=== PATIENT | male | born 1990 | race Caucasian/White ===

== ENCOUNTER 2021-08-10 14:35 | Inpatient (IN) | payer MEDICAID ==
[~2021-08-10] VITALS: Ht 172.7 cm; Wt 60.0 kg
[2021-08-10] MEDS ORDERED: NS 1,000 ML IV ONE (14:45)
[2021-08-10] MEDS ORDERED: OLANZapine ORAL DISINTEGRATING TAB 5MG PO ONE (15:00)
[2021-08-10 15:31] LABS: HEMATOCRIT 38.8 % (42.0-52.0); HEMOGLOBIN 13.4 g/dl (13.5-17.5); MEAN CORPUSCULAR HGB CONC 34.5 g/dl (32.0-36.5); PLATELET COUNT, AUTOMATED 259 10^3/uL (150-450); RED BLOOD COUNT 4.46 10^6/uL (4.30-6.10); WHITE BLOOD COUNT 10.1 10^3/uL (4.0-10.0)
[2021-08-10] MEDS ORDERED: ISOVUE-370 76% 100ML VIAL As Ordered ONE (15:45)
[2021-08-10 16:13] LABS: ALT/SGPT 47 U/L (12-78); BILIRUBIN,DIRECT 0.1 MG/DL (0.0-0.2); BILIRUBIN,TOTAL 0.4 MG/DL (0.2-1.0); BLOOD UREA NITROGEN 10 MG/DL (7-18); CALCIUM LEVEL 9.3 MG/DL (8.5-10.1); CARBON DIOXIDE LEVEL 28 MEQ/L (21-32); CHLORIDE LEVEL 103 MEQ/L (98-107); CREATININE FOR GFR 1.08 MG/DL (0.70-1.30); ETHYL ALCOHOL (ETHANOL) < 0.003 % (0.000-0.010); GLOMERULAR FILTRATION RATE > 60.0 (>60); GLUCOSE, FASTING 142 MG/DL (70-100); POTASSIUM SERUM 3.8 MEQ/L (3.5-5.1); SALICYLATE LEVEL 3.7 MG/DL (5.0-30.0); SODIUM LEVEL 138 MEQ/L (136-145); THYROID STIMULATING HORMONE 0.475 uIU/ML (0.358-3.740); TOTAL PROTEIN 7.4 GM/DL (6.4-8.2)
[2021-08-10 16:14] LABS: ACETAMINOPHEN LEVEL < 2.0 UG/ML (10.0-30.0)
[2021-08-10 17:20] LABS: AMPHETAMINES LEVEL URINE NEGATIVE (NEGATIVE); BARBITURATES URINE NEGATIVE (NEGATIVE); BENZODIAZEPINES URINE NEGATIVE (NEGATIVE); CANNABINOIDS URINE NEGATIVE (NEGATIVE); COCAINE METABOLITE URINE NEGATIVE (NEGATIVE); METHADONE URINE NEGATIVE (NEGATIVE); OPIATES URINE NEGATIVE (NEGATIVE); PHENCYCLIDINE URINE NEGATIVE (NEGATIVE)
[2021-08-11] MEDS ORDERED: HOME MED LIST COMPLETE! XX SCH (09:50)
[2021-08-12] MEDS: NICOTINE 21MG/24HR 1 EA TRANSDERMAL TD SCH (09:00)
[2021-08-12] MEDS ORDERED: OLANZapine ORAL DISINTEGRATING TAB 5MG PO ONE (09:55)
[2021-08-12] MEDS ORDERED: ACETAMINOPHEN TAB 650MG DOSE (2X325MG) PO PRN (13:25)
[2021-08-12] MEDS ORDERED: MAALOX 30 ML SUSP *UDC PO PRN (13:25)
[2021-08-12] MEDS ORDERED: OLANZapine ORAL DISINTEGRATING TAB 5MG PO PRN (13:25)
[2021-08-12] MEDS ORDERED: MOM 30ML SUSPENSION UDC PO PRN (13:25)
[2021-08-12 15:55] VITALS: BP 151/92
[2021-08-13] MEDS ORDERED: INFLUENZA QUADRIVALENT PF VACCINE 0.5ML SYRINGE IM PRN (07:55)
[2021-08-13] MEDS: NICOTINE 21MG/24HR 1 EA TRANSDERMAL TD SCH (09:00)
[2021-08-13] MEDS ORDERED: INFLUENZA QUADRIVALENT PF VACCINE 0.5ML SYRINGE IM ONE (09:00)
[2021-08-13 15:50] VITALS: BP 132/85
[2021-08-14] MEDS: NICOTINE 21MG/24HR 1 EA TRANSDERMAL TD SCH (09:00)
[2021-08-14 16:23] VITALS: BP 120/75
[2021-08-14] MEDS: traZODone 50 MG TAB PO PRN (21:19)
[2021-08-15] MEDS: NICOTINE 21MG/24HR 1 EA TRANSDERMAL TD SCH (08:05)
[2021-08-15] MEDS: PALIPERIDONE 3 MG ER TAB (INVEGA) PO SCH ×2 (14:14→21:08)
[2021-08-15 18:17] VITALS: BP 156/75
[2021-08-15] MEDS: traZODone 50 MG TAB PO PRN (21:06)
[2021-08-15] MEDS: DIVALPROEX 250MG *ER* TAB PO SCH (21:08)
[2021-08-16] MEDS: NICOTINE 21MG/24HR 1 EA TRANSDERMAL TD SCH (08:40)
[2021-08-16] MEDS: PALIPERIDONE 3 MG ER TAB (INVEGA) PO SCH ×2 (10:12→21:00)
[2021-08-16 14:43] LABS: CHOLESTEROL RISK RATIO 2.153 (<5)
[2021-08-16] MEDS: DIVALPROEX 250MG *ER* TAB PO SCH (21:00)
[2021-08-16] MEDS: traZODone 50 MG TAB PO PRN (21:00)
[2021-08-17 05:01] VITALS: BP 132/73
[2021-08-17] MEDS: NICOTINE 21MG/24HR 1 EA TRANSDERMAL TD SCH (09:00)
[2021-08-17] MEDS: PALIPERIDONE 3 MG ER TAB (INVEGA) PO SCH ×2 (09:49→20:52)
[2021-08-17] MEDS ORDERED: PALIPERIDONE PALMITATE 234MG/1.5ML INJ (INVEGA)(FREE PSY INPT ONLY) IM ONE (12:00)
[2021-08-17] MEDS ORDERED: BENZTROPINE 1 MG TAB PO PRN (12:10)
[2021-08-17 17:39] VITALS: BP 93/50
[2021-08-17] MEDS: DIVALPROEX 250MG *ER* TAB PO SCH (20:52)
[2021-08-17] MEDS: traZODone 50 MG TAB PO PRN (20:52)
[2021-08-18] MEDS: NICOTINE 21MG/24HR 1 EA TRANSDERMAL TD SCH (09:00)
[2021-08-18] MEDS: PALIPERIDONE 3 MG ER TAB (INVEGA) PO SCH ×2 (09:28→20:23)
[2021-08-18] MEDS: traZODone 50 MG TAB PO PRN (20:23)
[2021-08-18] MEDS: DIVALPROEX 250MG *ER* TAB PO SCH (20:23)
[2021-08-19] MEDS: NICOTINE 21MG/24HR 1 EA TRANSDERMAL TD SCH (08:03)
[2021-08-19] MEDS: PALIPERIDONE 3 MG ER TAB (INVEGA) PO SCH ×2 (08:06→20:59)
[2021-08-19 17:39] VITALS: BP 154/85
[2021-08-19] MEDS: DIVALPROEX 250MG *ER* TAB PO SCH (20:58)
[2021-08-19] MEDS: traZODone 50 MG TAB PO PRN (20:58)
[2021-08-20 06:20] VITALS: BP 125/67
[2021-08-20] MEDS: NICOTINE 21MG/24HR 1 EA TRANSDERMAL TD SCH (09:00)
[2021-08-20] MEDS: PALIPERIDONE 3 MG ER TAB (INVEGA) PO SCH ×2 (09:38→21:31)
[2021-08-20] MEDS: DIVALPROEX 250MG *ER* TAB PO SCH (21:30)
[2021-08-20] MEDS: traZODone 50 MG TAB PO PRN (21:30)
[2021-08-21] MEDS ORDERED: PALIPERIDONE PALMITATE 156MG/1ML INJ(INVEGA)(FREE PSY INPT ONLY) IM ONE (09:00)
[2021-08-21] MEDS: NICOTINE 21MG/24HR 1 EA TRANSDERMAL TD SCH (09:00)
[2021-08-21] MEDS: PALIPERIDONE 3 MG ER TAB (INVEGA) PO SCH ×2 (11:02→22:40)
[2021-08-21] MEDS: traZODone 50 MG TAB PO PRN (22:40)
[2021-08-21] MEDS: DIVALPROEX 250MG *ER* TAB PO SCH (22:41)
[2021-08-22] MEDS: NICOTINE 21MG/24HR 1 EA TRANSDERMAL TD SCH (09:00)
[2021-08-22] MEDS: PALIPERIDONE 3 MG ER TAB (INVEGA) PO SCH (09:34)
[2021-08-22] MEDS ORDERED: INVE234I IM (09:41)
[2021-08-22] MEDS ORDERED: DEPA250T2 PO (09:41)
[2021-08-22] MEDS ORDERED: TRAZ-252 PO (09:41)
[2021-08-22] MEDS ORDERED: PALI1TAB2 PO (09:41)
[2021-08-22] MEDS ORDERED: BENZ-52 PO (09:41)
[2021-08-22] MEDS ORDERED: NICO21PAT TD (09:41)
[2021-08-22] MEDS ORDERED: DEPA500T2 PO (09:45)
== END 2021-08-22 12:25 | DRG 750 ==
LOC: EDBD 14:35 → M ED 14:35 → M ED INP 08-12 13:25 → M PSY 08-12 14:53
PROVIDERS: ADMIT Student in an Organized Health Care Education/Training Program; ATTEND Student in an Organized Health Care Education/Training Program
DX: F25.0 Schizoaffective disorder, bipolar type (principal); U07.1 COVID-19; F17.210 Nicotine dependence, cigarettes, uncomplicated; F12.10 Cannabis abuse, uncomplicated; Z91.19 Patient's noncompliance with other medical treatment and regimen; Z59.02 Unsheltered homelessness; Z65.3 Problems related to other legal circumstances

== ENCOUNTER 2021-12-02 17:04 | Inpatient (IN) | payer MEDICAID ==
[~2021-12-02] VITALS: Ht 170.2 cm; Wt 60.4 kg
[~2021-12-02 17:04] MED LIST: BENZ-52 PO; DEPA250T2 PO; DEPA500T2 PO; INVE234I IM; NICO21PAT TD; PALI1TAB2 PO; TRAZ-252 PO
[2021-12-02 17:54] LABS: HEMATOCRIT 42.8 % (42.0-52.0); HEMOGLOBIN 14.7 g/dl (13.5-17.5); MEAN CORPUSCULAR HEMOGLOBIN 30.9 pg (27.0-33.0); MEAN CORPUSCULAR HGB CONC 34.3 g/dl (32.0-36.5); MEAN CORPUSCULAR VOLUME 90.1 fl (80.0-96.0); PLATELET COUNT, AUTOMATED 267 10^3/uL (150-450); RED BLOOD COUNT 4.75 10^6/uL (4.30-6.10); WHITE BLOOD COUNT 10.4 10^3/uL (4.0-10.0)
[2021-12-02 18:29] LABS: ACETAMINOPHEN LEVEL < 2.0 UG/ML (10.0-30.0); ALBUMIN 4.1 GM/DL (3.2-5.2); ALT/SGPT 30 U/L (12-78); BILIRUBIN,DIRECT < 0.1 MG/DL (0.0-0.2); BILIRUBIN,TOTAL 0.3 MG/DL (0.2-1.0); BLOOD UREA NITROGEN 8 MG/DL (7-18); CALCIUM LEVEL 9.6 MG/DL (8.5-10.1); CARBON DIOXIDE LEVEL 29 MEQ/L (21-32); CHLORIDE LEVEL 105 MEQ/L (98-107); CREATININE FOR GFR 1.05 MG/DL (0.70-1.30); ETHYL ALCOHOL (ETHANOL) < 0.003 % (0.000-0.010); GLOMERULAR FILTRATION RATE > 60.0 (>60); GLUCOSE, FASTING 140 MG/DL (70-100); POTASSIUM SERUM 4.1 MEQ/L (3.5-5.1); SODIUM LEVEL 139 MEQ/L (136-145); THYROID STIMULATING HORMONE 0.669 uIU/ML (0.358-3.740)
[2021-12-02 18:30] LABS: RSV AMPLIFICATION NEGATIVE (NEGATIVE)
[2021-12-02 18:31] LABS: AMPHETAMINES LEVEL URINE NEGATIVE (NEGATIVE); BARBITURATES URINE NEGATIVE (NEGATIVE); BENZODIAZEPINES URINE NEGATIVE (NEGATIVE); CANNABINOIDS URINE NEGATIVE (NEGATIVE); COCAINE METABOLITE URINE NEGATIVE (NEGATIVE); METHADONE URINE NEGATIVE (NEGATIVE); OPIATES URINE NEGATIVE (NEGATIVE); PHENCYCLIDINE URINE NEGATIVE (NEGATIVE)
[2021-12-03] MEDS ORDERED: MAALOX 30 ML SUSP *UDC PO PRN (00:15)
[2021-12-03] MEDS ORDERED: ACETAMINOPHEN TAB 650MG DOSE (2X325MG) PO PRN (00:15)
[2021-12-03] MEDS ORDERED: traZODone 50 MG TAB PO PRN (00:15)
[2021-12-03] MEDS ORDERED: LORazepam 1 MG TAB PO PRN (00:15)
[2021-12-03] MEDS ORDERED: MOM 30ML SUSPENSION UDC PO PRN (00:15)
[2021-12-03] MEDS ORDERED: HOME MED LIST COMPLETE! XX SCH (00:40)
[2021-12-03] MEDS ORDERED: PALIPERIDONE 6 MG ER TAB (INVEGA) PO SCH (09:00)
[2021-12-03 18:50] VITALS: BP 119/68
[2021-12-04] MEDS ORDERED: PALIPERIDONE PALMITATE 234MG/1.5ML INJ (INVEGA)(FREE PSY INPT ONLY) IM ONE (09:00)
[2021-12-04 18:59] VITALS: BP 138/75
[2021-12-05 17:58] VITALS: BP 122/68
[2021-12-06 06:37] VITALS: BP 124/70
[2021-12-06] MEDS ORDERED: INVE234I IM (10:32)
[2021-12-06] MEDS ORDERED: HOME MED LIST COMPLETE! XX SCH (10:35)
[2021-12-06 18:00] VITALS: BP 131/77
[2021-12-07 07:03] VITALS: BP 125/69
[2021-12-08 06:27] VITALS: BP 112/69
[2021-12-08 18:33] VITALS: BP 122/68
[2021-12-09] MEDS ORDERED: DIVALPROEX 250MG *ER* TAB PO SCH (11:30)
[2021-12-09 18:00] VITALS: BP 155/84
[2021-12-09] MEDS: DIVALPROEX 250MG *ER* TAB PO SCH (21:47)
[2021-12-10 06:48] VITALS: BP 131/80
[2021-12-10 18:00] VITALS: BP 113/62
[2021-12-10] MEDS: DIVALPROEX 250MG *ER* TAB PO SCH (21:09)
[2021-12-11 07:04] VITALS: BP 110/72
[2021-12-11] MEDS: DIVALPROEX 250MG *ER* TAB PO SCH (20:30)
[2021-12-12 07:10] VITALS: BP 114/69
[2021-12-12 16:26] VITALS: BP 115/73
[2021-12-12] MEDS: DIVALPROEX 250MG *ER* TAB PO SCH (21:15)
[2021-12-13 06:24] VITALS: BP 117/71
[2021-12-13] MEDS: DIVALPROEX 500MG *ER* TAB PO SCH (20:37)
[2021-12-14 06:14] VITALS: BP 134/79
[2021-12-14] MEDS ORDERED: PALIPERIDONE PALMITATE 156MG/1ML INJ(INVEGA)(FREE PSY INPT ONLY) IM ONE (14:00)
[2021-12-14] MEDS: DIVALPROEX 500MG *ER* TAB PO SCH (20:02)
[2021-12-15 07:16] VITALS: BP 121/59
[2021-12-15] MEDS: DIVALPROEX 500MG *ER* TAB PO SCH (19:53)
[2021-12-16 16:53] VITALS: BP 122/71
[2021-12-16] MEDS: DIVALPROEX 500MG *ER* TAB PO SCH (20:03)
[2021-12-17 07:10] VITALS: BP 120/73
[2021-12-17] MEDS: DIVALPROEX 500MG *ER* TAB PO SCH (20:35)
[2021-12-18] MEDS: DIVALPROEX 500MG *ER* TAB PO SCH (20:04)
[2021-12-19 06:28] VITALS: BP 132/72
[2021-12-19] MEDS ORDERED: INVE234I IM ×2 (10:45→15:33)
[2021-12-19] MEDS ORDERED: DEPA500T2 PO ×2 (10:45→15:32)
== END 2021-12-19 11:58 | disposition home or self-care (01) | DRG 750 ==
LOC: M ED 17:04 → M ED INP 17:05 → M PSY 12-03 04:12
PROVIDERS: ADMIT Psychiatry & Neurology Psychiatry; ATTEND Psychiatry & Neurology Psychiatry
DX: F25.0 Schizoaffective disorder, bipolar type (principal); Z91.14 Patient's other noncompliance with medication regimen; F17.200 Nicotine dependence, unspecified, uncomplicated